=== PATIENT | female | born 1980 | race Caucasian/White ===

== ENCOUNTER 2016-12-10 10:43 | Emergency (ER) | payer SELFPAY ==
[2016-12-10 11:34] LABS: BASOPHILS % 0.4 (0.0-1.5); EOSINOPHILS % 3.8 % (0.0-6.8); LYMPHOCYTES # 2.2 # k/uL (0.6-4.0); MEAN CORPUSCULAR HEMOGLOBIN 33.7 pg (28.0-34.0); MONOCYTES # 0.2 # k/uL (0.0-0.9); MONOCYTES % 5.4 % (0.0-11.0); NEUTROPHILS # 1.8 # k/uL (1.4-7.7)
[2016-12-10 11:50] LABS: eGFR (African) > 60; eGFR (Non-African) > 60
--- NOTE | 2016-12-10 12:17 | ED Physician Documentation ---
Upper Respiratory Symptoms - HISTORIAN Historian: patient - HPI Stated Complaint: cough Chief Complaint: Cough/ Upper Respiratory Onset: days ago Associated Symptoms: fever, chills, productive cough, other (wheezing) Further Comments: yes (36 year old female patient presents with complaints of cough, fever and wheezing for the past 7-10 days.) - ROS CONST/EYES: denies: weakness, eye redness, eye itching, other CVS/RESP: none LYMPH: denies: leg swelling, rash, swollen glands, ankle swelling, other GI/: none - PAST HX Lung Disease: asthma Allergies/Adverse Reactions: Allergies Allergy/AdvReac Type Severity Reaction Status Date / Time codeine [Codeine] Allergy Intermediate Rash Verified 12/10/16 10:57 Penicillins Allergy Intermediate Rash Verified 12/10/16 10:57 Home Medications: Ambulatory Orders Medication Instructions Recorded Albuterol Sulfate [Ventolin] 2.5 mg NEB Q4 PRN #25 vial 12/10/16 Ciprofloxacin HCl [Cipro] 500 mg PO BID #20 tablet 12/10/16 Prednisone 30 mg PO DAILY #15 tablet 12/10/16 - SOCIAL HX Smoking History: cigarettes - FAMILY HX Family History: denies: none - VITAL SIGNS Vital Signs: Vital Signs Temp Pulse Resp BP Pulse Ox 99.1 F 80 18 123/67 96 12/10/16 10:51 12/10/16 10:51 12/10/16 10:51 12/10/16 10:51 12/10/16 10:51 - REVIEWED ASSESSMENTS Nursing Assessment Reviewed: Yes Vitals Reviewed: Yes Progress - Progress Progress: Patient requesting medication from the $4 list, states she does not have medical insurance. Patient concerned she cannot afford medications today. Call to [facility] - explained to patient she could rent a nebulizer machine for $20 per month. ED Results Lab/Radiology - Lab Results Lab Results: Lab Results 12/10/16 12/10/16 12/10/16 11:20 11:20 11:10 WBC 4.50 K/ul K/ul (4.00-12.00) RBC 4.11 M/ul M/ul (3.90-5.20) Hgb 13.9 g/dL g/dL (12.0-16.0) Hct 41.3 % % (34.5-46.5) MCV 100.6 fl H fl (80.0-100.0) MCH 33.7 pg pg (28.0-34.0) MCHC 33.5 g/dL g/dL (30.0-36.0) RDW 12.6 % % (11.3-14.3) Plt Count 199 K/mm3 K/mm3 (130-400) Neut % (Auto) 38.8 % L % (39.0-79.0) Lymph % (Auto) 48.5 % % (16.0-50.0) [place] % (Auto) 5.4 % % (0.0-11.0) Eos % (Auto) 3.8 % % (0.0-6.8) Baso % (Auto) 0.4 (0.0-1.5) Neut # 1.8 # k/uL # k/uL (1.4-7.7) Lymph # 2.2 # k/uL # k/uL (0.6-4.0) [place] # 0.2 # k/uL # k/uL (0.0-0.9) Eos # 0.2 # k/uL # k/uL (0.0-0.6) Baso # 0.0 # k/uL # k/uL (0.0-0.5) Reactive Lymphs % 3.0 % % (0.0-5.0) Reactive Lymphs # 0.1 # k/uL # k/uL (0.0-0.8) Sodium 139 mmol/L mmol/L (136-145) Potassium 4.0 mmol/L mmol/L (3.5-5.0) Chloride 107 mmol/L mmol/L (98-110) Carbon Dioxide 35 mmol/L H mmol/L (20-32) BUN 12 mg/dL mg/dL (10-26) Creatinine 0.6 mg/dL mg/dL (0.4-1.5) Estimated Creat Clear 333 Est GFR ( Amer) > 60 (60 - ) Est GFR (Non-Af Amer) > 60 (60 - ) Glucose 108 mg/dL H mg/dL (70-99) Calcium 9.7 mg/dL mg/dL (8.5-10.5) Total Bilirubin 0.4 mg/dL mg/dL (0.2-1.2) AST 42 U/L H U/L (0-41) ALT 49 U/L H U/L (0-45) Alkaline Phosphatase 79 U/L U/L (46-116) Total Protein 7.8 g/dL g/dL (6.0-8.5) Influenza Type A Ag Negative (NEGATIVE) Influenza Type B Ag Negative (NEGATIVE) - Orders Orders: ED Orders Category Date Time Status CHEST 2 VIEW [CHEST P.A.&LAT 2 VIEWS] [RAD] Stat Exams 12/10/16 Ordered CBC/PLATELET/DIFF Stat Lab 12/10/16 11:20 Completed CMP Stat Lab 12/10/16 11:20 Completed INFLUENZA A&B Stat Lab 12/10/16 11:10 Completed Upper Respiratory Symptoms - EXAM General Appearance: no acute distress, alert EENT: eyes nml inspection, nml ENT inspection, lids & conjunct. nml, PERRL, ear nml, nose nml, pharynx nml, airway nml Respiratory: no resp. 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 Neuro/Psych: oriented x3, neuro intact, mood/affect nml, CN's nml as tested Discharge Clincal Impression: Asthma Qualifiers: Asthma severity: mild intermittent Asthma complication type: with acute exacerbation Qualified Code(s): J45.21 - Mild intermittent asthma with (acute) exacerbation Prescriptions: Albuterol Sulfate [Ventolin] 2.5 mg NEB Q4 PRN #25 vial PRN Reason: Wheezing Ciprofloxacin HCl [Cipro] 500 mg PO BID #20 tablet Prednisone 30 mg PO DAILY #15 tablet Referrals: Primary Doctor,No [Primary Care Provider] - 2 Days Additional Instructions: Start a daily allergy medication such as claritan, giuliana, or zyrtec puppy walker your prescriptions at [facility] and start them today. Contact [facility] to rent a neb machine. Home Medications: Ambulatory Orders Albuterol Sulfate [Ventolin] 2.5 mg NEB Q4 PRN #25 vial 12/10/16 Ciprofloxacin HCl [Cipro] 500 mg PO BID #20 tablet 12/10/16 Prednisone 30 mg PO DAILY #15 tablet 12/10/16 Condition: Stable Disposition: HOME, SELF-CARE Decision to Admit: NO Decision Time: 12:22
[2016-12-10 12:59] VITALS: BP 122/72
--- NOTE | 2016-12-10 14:39 | Diagnostic Imaging Report ---
[facility] [address] [facility].[address] [address] Report Submission Date: Dec 10, 2016 1:14:13 PM BACKEND TESTER Patient Study Name: NICOLE SAHA Date: Dec 10, 2016 11:31:31 AM BACKEND TESTER Modality Type: CR Gender: F Description: CHEST : 84 Institution: [facility] Physician IMMANUEL FELICIANO (MEDICAL RESEARCHER) - ER Chest 2 views The exam: December 10, 2016. Clinical history: Cough, shortness of breath and wheezing. Findings: There are no comparison studies. The cardiac and mediastinal silhouettes are normal. The lungs are clear without evidence of infiltrate or effusion. The trachea is midline and the aortic arch contour is normal. The pulmonary vascularity is within normal limits. There is mild degenerative thoracic spondylosis. Impression: No acute cardiopulmonary abnormality. Electronically signed on Dec 10, 2016 1:14:13 PM BACKEND TESTER by: Desirae HERRERA
== END 2016-12-10 12:38 | disposition home or self-care (01) ==
LOC: ED 10:43
DX: J45.21 Mild intermittent asthma with (acute) exacerbation (principal)
CPT/HCPCS: 36415; 71020; 80053; 85025; 87400; 99283

== ENCOUNTER 2017-09-09 07:34 | Emergency (ER) | payer SELFPAY ==
--- NOTE | 2017-09-09 07:51 | ED Physician Documentation ---
Upper Respiratory Symptoms - HISTORIAN Historian: patient - HPI Stated Complaint: cough x 4 days - she is a smoker Chief Complaint: Cough/ Upper Respiratory Onset: days ago (4) Duration: other (sometimes - per her statement ) Context: denies: recent foreign travel, insect bite(s), tick(s) Severity: mild Associated Symptoms: sinus pain, productive cough (at times she has a productive cough other times it is not productive ). denies: fever, chills, sweating, earache, runny nose, sinus drainage, sore throat, hoarseness, allergy , shortness of breath, hurts to breathe Worsened by Deep Breath: No Further Comments: no - ROS CONST/EYES: denies: weakness, eye redness, eye itching CVS/RESP: none LYMPH: denies: leg swelling, rash, swollen glands, ankle swelling GI/: denies: abdominal pain, problems urinating, vomiting, nausea NEURO/PSYCH: denies: fainting, dizziness, confusion MS/SKIN: denies: joint pain - PAST HX Lung Disease: none PE Risk Factors: none Other History: other (borderline diabetic ) Surgeries/Procedures: appendectomy, BLT, other (right arm had pins ) Immunizations: referred to PCP Allergies/Adverse Reactions: Allergies Allergy/AdvReac Type Severity Reaction Status Date / Time codeine [Codeine] Allergy Intermediate Rash Verified 09/09/17 08:02 Penicillins Allergy Intermediate Rash Verified 09/09/17 08:02 Home Medications: Ambulatory Orders Medication Instructions Recorded NK [NK] 09/09/17 - SOCIAL HX Smoking History: cigarettes Alcohol Use: none Drug Use: none - FAMILY HX Family History: none - VITAL SIGNS Vital Signs: Vital Signs Temp Pulse Resp BP Pulse Ox 97.2 F L 90 20 109/54 93 09/09/17 07:34 09/09/17 07:34 09/09/17 07:34 09/09/17 07:34 09/09/17 07:34 - REVIEWED ASSESSMENTS Nursing Assessment Reviewed: Yes Vitals Reviewed: Yes ED Results Lab/Radiology - Radiology Radiology Impressions: HISTORY: 37-year-old female with cough. COMPARISON: Chest x-ray dated 12/10/2016 TECHNIQUE: 2 views of the chest were performed. FINDINGS: No pneumothorax, consolidative infiltrates, pleural effusions, or pulmonary edema. The heart is not enlarged. There is mild lower thoracic degenerative disc disease. IMPRESSION: No acute cardiopulmonary process identified. Electronically signed on Sep 09, 2017 8:10:30 AM CDT by: Berto Padilla - Orders Orders: ED Orders Category Date Time Status CHEST P.A.&LAT 2 VIEWS [RAD] Stat Exams 09/09/17 Ordered Chem Sticks Med 09/09/17 07:52 Discontinued 1 each MC CHEMQ ONE Upper Respiratory Symptoms - EXAM General Appearance: no acute distress EENT: eyes nml inspection, nml ENT inspection Respiratory: no resp. distress, breath sounds nml, no pain on inspiration, speaks full sentences Abdomen: non-tender CVS: reg rate & rhythm, heart sounds normal Skin: color nml, no rash, warm,dry Extremities: non-tender, normal range of motion Neuro/Psych: oriented x3 Discharge Clincal Impression: Viral URI with cough Referrals: Primary Doctor,No [Primary Care Provider] - 2 Days Decision to Admit: NO Date of Decison to Admit: 09/09/17 Decision Time: 08:18
[2017-09-09 08:02] VITALS: BP 109/54
--- NOTE | 2017-09-09 15:20 | Diagnostic Imaging Report ---
YIFAN SALCEDO [facility] [address] [facility] [address] [place], [place]. [address] Report Submission Date: Sep 09, 2017 8:10:30 AM CDT Patient Study Name: NICOLE SAHA Date: Sep 09, 2017 8:00:28 AM CDT Modality Type: CR Gender: F Description: CHEST : 84 Institution: [facility] Physician: YIFAN SALCEDO HISTORY: 37-year-old female with cough. COMPARISON: Chest x-ray dated 12/10/2016 TECHNIQUE: 2 views of the chest were performed. FINDINGS: No pneumothorax, consolidative infiltrates, pleural effusions, or pulmonary edema. The heart is not enlarged. There is mild lower thoracic degenerative disc disease. IMPRESSION: No acute cardiopulmonary process identified. Electronically signed on Sep 09, 2017 8:10:30 AM CDT by: Berto HERRERA
== END 2017-09-09 08:21 | disposition home or self-care (01) ==
LOC: ED 07:34
DX: J06.9 Acute upper respiratory infection, unspecified (principal); R05 Cough
CPT/HCPCS: 71020; 99283

== ENCOUNTER 2018-05-30 13:36 | Emergency (ER) | payer SELFPAY ==
--- NOTE | 2018-05-30 14:15 | ED Physician Documentation ---
Low Back Pain - HISTORIAN Historian: patient - HPI Chief Complaint: Low Back Pain/ Injury History: history of chronic pain: (freq dental pain) Onset: days ago (2) Duration: continues in ED Recent Injury: No Other Injuries: other (lo back) Severity: mild, moderate Quality: burning, similar- prior back pain Associated Symptoms: incontinence, problems urinating (frequency slight burning- long hx freq uti). denies: fever, chills, sweating, constipation, nausea, vomiting - ROS CONST: no problems CVS/RESP: none. denies: chest pain EYES/ENT: none MS/SKIN/LYMPH: none, other (recent tattoo 05-28-18) Neuro/Psych: none GI/: denies: abdominal pain - PAST HX Past History: back pain Other History: other (PCOS asthma). denies: aortic aneurysm, cancer chemo Surgeries/Procedures: appendectomy, BTL Allergies/Adverse Reactions: Allergies Allergy/AdvReac Type Severity Reaction Status Date / Time codeine [Codeine] Allergy Intermediate Rash Verified 09/09/17 08:02 Penicillins Allergy Intermediate Rash Verified 09/09/17 08:02 Home Medications: Ambulatory Orders Medication Instructions Recorded NK [NK] 09/09/17 - SOCIAL HX Smoking History: greater than 1 pack/day Alcohol Use: rarely Drug Use: none - FAMILY HX Family History: no significant history - VITAL SIGNS Vital Signs: Vital Signs Temp Pulse Resp BP Pulse Ox 109/54 09/09/17 07:34 - REVIEWED ASSESSMENTS Nursing Assessment Reviewed: Yes Vitals Reviewed: Yes ED Results Lab/Radiology - Orders Orders: ED Orders Category Date Time Status URINALYSIS Routine Lab 05/30/18 Ordered Low Back Pain/Injury - Physical Exam General Appearance: mild distress, moderate distress EENT: eye inspection normal Neck: non-tender Resp/CVS: chest non-tender, breath sounds nml, heart sounds nml, no resp. distress, lungs clear, reg. rate & rhythm Abdomen: non-tender Back: other (lo back w/ some para vert spasm) Neuro/Psych: oriented x3, motor nml, sensation nml, mood/affect nml Skin: warm/dry, normal color. No: cyanosis, diaphoresis Extremities: non-tender, normal range of motion Discharge Clincal Impression: uti lo back pain Referrals: Primary Doctor,No [Primary Care Provider] - 2 Days Comments: cipro nonefor more thamn 3 mo. ibu for back pain Condition: Good Disposition: 01 HOME, SELF-CARE Decision to Admit: NO Decision Time: 14:20
[2018-05-31 07:20] LABS: APPEARANCE,URINE CLOUDY (CLEAR); COLOR,URINE YELLOW (YELLOW); OCCULT BLOOD,URINE NEGATIVE (NEGATIVE); UROBILINOGEN URINE 0.2 Eu (0.2-1.0)
== END 2018-05-30 14:30 | disposition home or self-care (01) ==
LOC: ED 13:36
DX: N39.0 Urinary tract infection, site not specified (principal); M54.5 Low back pain
CPT/HCPCS: 81002; 87086; 99283

== ENCOUNTER 2018-11-04 09:18 | Emergency (ER) | payer SELFPAY ==
[2018-11-04 09:40] VITALS: BP 131/74
--- NOTE | 2018-11-04 09:44 | ED Physician Documentation ---
Flank Pain - HISTORIAN Historian: patient - HPI Stated Complaint: flank pain Chief Complaint: Flank Pain Additional Information: Patient presents to ED with a 12 hour history of left flank pain and low back pain. Patient has a history of PCOS and frequent urinary tract infections. She admit to chills and lower abdominal pain also. Onset: hours (12) Duration: waxing, waning Timing: still present Context: denies: out of country travel Severity: mild Quality: aching, cramping Associated Symptoms: chills. denies: nausea, vomiting Exacerbated by: movements Relieved by: remaining still - ROS CONST: no problems GI/: denies: problems urinating CVS/RESP: denies: shortness of breath EYES/ENT: none MS/SKIN/LYMPH: none NEURO/PSYCH: none - SOCIAL HX Smoking History: non-smoker Alcohol Use: none Drug Use: none - FAMILY HX Family History: none - PAST HX Past History: other (PCOS) Ischemic Bowel Risk Factors: none Other History: none Surgeries/Procedures: other (tubal) Medications: none - VITAL SIGNS Vital Signs: Vital Signs Temp Pulse Resp BP Pulse Ox 96.7 F L 79 22 131/74 98 11/04/18 09:29 11/04/18 09:29 11/04/18 09:29 11/04/18 09:29 11/04/18 09:29 - REVIEWED ASSESSMENTS Nursing Assessment Reviewed: Yes Vitals Reviewed: Yes ED Results Lab/Radiology - Lab Results Lab Results: UA = 3+ blood, trace leukocytes, Nitrite negative. - Radiology Radiology Impressions: Examination: CT Abdomen/pelvis History: Comparison exams: None available Technique: CT Abdomen/pelvis without IV protocol. Findings: Liver, spleen, adrenals, pancreas, kidneys and gallbladder are without gross irregularity given exam technique. No gallstone. No suspicious renal calcifications. Ureters are nondilated in their course through the abdomen and pelvis. No central calcifications. Bladder margin within normal limits. Abdominal aorta without aneurysm or peripheral atherosclerotic disease. Cardiac silhouette is not enlarged. No pericardial effusion. Bowel unopacified limiting evaluation. No abnormal dilation. Stool within the large bowel limiting sensitivity. No mesenteric inflammatory changes or free fluid. Surgical clips in the cecum/appendiceal region. Osseous structures demonstrate degenerative changes. Lung bases demonstrate atelectasis without infiltrate. No effusion. Impression: No acute upper abdominal organ inflammatory process. No abnormal bowel dilation or inflammation. No gallstone. No suspicious renal calcifications or abnormal ureteric dilation. No lung base consolidation or effusion. Electronically signed on Nov 04, 2018 10:22:39 AM ARMOR RECONNAISSANCE VEHICLE CREWMAN by: Kota Ovalle - Orders Orders: ED Orders Category Date Time Status CT ABD & PELVIS W/O CON Stat Exams 11/04/18 Ordered UA W MICRO [UA W/MICRO IF INDICATED] Routine Lab 11/04/18 09:28 Ordered Abdominal Pain Physical Exam - Physical Exam General Appearance: no acute distress, alert EENT: RASHMI NECK: supple RESPIRATORY: no resp distress, chest non-tender, breath sounds normal CVS: reg rate & rhythm, heart sounds normal ABDOMEN: soft, tenderness (suprapubic) BACK: CVA tenderness (L) SKIN: warm/dry EXTREMITIES: non-tender, no edema NEURO: oriented X3, motor nml Vital Signs: Vital Signs Temp Pulse Resp BP Pulse Ox 96.7 F L 79 22 131/74 98 11/04/18 09:29 11/04/18 09:29 11/04/18 09:29 11/04/18 09:29 11/04/18 09:29 Discharge Clincal Impression: Acute cystitis Qualifiers: Hematuria presence: with hematuria Qualified Code(s): N30.01 - Acute cystitis with hematuria Prescriptions: Ciprofloxacin HCl [Cipro] 500 mg PO BID #14 tablet Referrals: Primary Doctor,No [Primary Care Provider] - 2 Days Additional Instructions: 1. Tylenol and/or Ibuprofen as needed for pain 2. Drink plenty of fluids to maintain proper hydration 3. Avoid caffeine, alcohol and energy drinks 4. Follow up with PCP within 1 week 5. Return to ED with new or worsening symptoms Condition: Stable Disposition: 01 HOME, SELF-CARE Decision to Admit: NO Date of Decison to Admit: 11/04/18 Decision Time: 10:26
--- NOTE | 2018-11-04 10:28 | Diagnostic Imaging Report ---
Report Submission Date: Nov 04, 2018 10:22:39 AM CREATIVE STRATEGIST Patient Study Name: NICOLE SAHA Date: Nov 04, 2018 9:53:45 AM CREATIVE STRATEGIST Modality Type: CT\SR Gender: F Description: CT ABD PELVIS W/O CO : 84 Institution: [facility] Physician: CHUY ANGELES Examination: CT Abdomen/pelvis History: Comparison exams: None available Technique: CT Abdomen/pelvis without IV protocol. Findings: Liver, spleen, adrenals, pancreas, kidneys and gallbladder are without gross irregularity given exam technique. No gallstone. No suspicious renal calcifications. Ureters are nondilated in their course through the abdomen and pelvis. No central calcifications. Bladder margin within normal limits. Abdominal aorta without aneurysm or peripheral atherosclerotic disease. Cardiac silhouette is not enlarged. No pericardial effusion. Bowel unopacified limiting evaluation. No abnormal dilation. Stool within the large bowel limiting sensitivity. No mesenteric inflammatory changes or free fluid. Surgical clips in the cecum/appendiceal region. Osseous structures demonstrate degenerative changes. Lung bases demonstrate atelectasis without infiltrate. No effusion. Impression: No acute upper abdominal organ inflammatory process. No abnormal bowel dilation or inflammation. No gallstone. No suspicious renal calcifications or abnormal ureteric dilation. No lung base consolidation or effusion. Electronically signed on Nov 04, 2018 10:22:39 AM CREATIVE STRATEGIST by: Kota HERRERA
== END 2018-11-04 10:37 | disposition home or self-care (01) ==
LOC: ED 09:18
DX: N30.01 Acute cystitis with hematuria (principal)
CPT/HCPCS: 74176; 99282; 99284

== ENCOUNTER 2019-02-04 07:38 | Emergency (ER) | payer SELFPAY ==
[2019-02-04 07:57] VITALS: BP 134/56
[2019-02-04] MEDS ORDERED: KETOROLAC TROMETHAMINE 60 MG/2 ML VIAL IM ONE (08:15)
--- NOTE | 2019-02-04 08:22 | ED Physician Documentation ---
Female Urogenital Problems - HISTORIAN Historian: patient - HPI Stated Complaint: Dysuria Chief Complaint: Female Urogenital Problems (Urinary sx's) Additional Information: Patient is a 38-year-old female who presents to the ER with c/o urinary urgency, pain, frequency, and blood. She states that symptoms started 2 days ago. She has an extensive history of UTIs since the age of 4. She states that she has had multiple work ups and "no findings". She denies bubble baths, douches, or creams. She normally takes Cipro but does not feel that it works anymore- would like to try Bactrim again. She is requesting Pyridium for the pain. She states that she does not have insurance to see her PCP regularly but she is working. Onset: days ago (2) Severity: mild Location of Pain: pelvic pain (pubic pain when urinating) Further Comments: no - Associated Symptoms Urinary Symptoms: blood in urine, frequent urination, burning w/ urination, urgency w/ urination, pain w/ urination Discharge: denies: vaginal discharge - ROS CONST: none GI/: denies: nausea, vomiting CVS/RESP: none EYES/ENT: none NEURO/PSYCH: none MS/SKIN/LYMPH: none - PAST HX Past History: none Other History: bladder infection Surgeries/Procedures: BTL Immunizations: UTD Allergies/Adverse Reactions: Allergies Allergy/AdvReac Type Severity Reaction Status Date / Time codeine [Codeine] Allergy Intermediate Rash Verified 02/04/19 07:55 Penicillins Allergy Intermediate Rash Verified 02/04/19 07:55 Home Medications: Ambulatory Orders Medication Instructions Recorded Ciprofloxacin HCl [Cipro] 500 mg PO BID #14 tablet 11/04/18 Phenazopyridine HCl [Pyridium] 200 mg PO TID PRN #21 tablet 02/04/19 Sulfamethoxazole/Trimethoprim 1 each PO BID #20 tab 02/04/19 [Bactrim Ds] - SOCIAL HX Smoking History: greater than 1 pack/day Alcohol Use: rarely Drug Use: none - FAMILY HX Family History: none - VITAL SIGNS Vital Signs: Vital Signs Temp Pulse Resp BP Pulse Ox 97.9 F 98 H 16 134/56 98 02/04/19 07:38 02/04/19 07:38 02/04/19 07:38 02/04/19 07:38 02/04/19 07:38 - REVIEWED ASSESSMENTS Nursing Assessment Reviewed: Yes Vitals Reviewed: Yes Progress - Progress Progress: Discussed sending referral in for Urology- she states that she does not have insurance and cant afford it- she has had multiple work-ups in the past and no abnormal findings ED Results Lab/Radiology - Lab Results Lab Results: Positive UTI with hematuria- will send for culture - Orders Orders: ED Orders Category Date Time Status Ketorolac Tromethamine [Toradol] Med 02/04/19 08:15 Once 60 mg IM NOW ONE Female Urogenital Problems - EXAM General Appearance: no acute distress, alert EENT: eye inspection normal, ENT inspection normal, pharynx normal, no signs of dehydration, RASHMI Neck: nml inspection Respiratory: no resp. distress, breath sounds nml CVS: reg rate & rhythm, heart sounds normal, equal pulses Abdomen: soft, non-tender, no distention, nml bowel sounds Back: non-tender Skin: color nml, no rash Extremities: normal range of motion Neuro: oriented X3, CN's nml as tested, motor nml, sensation nml, mood/affect nml, cognition normal Discharge Clincal Impression: Acute cystitis Prescriptions: Phenazopyridine HCl [Pyridium] 200 mg PO TID PRN #21 tablet PRN Reason: Pain Sulfamethoxazole/Trimethoprim [Bactrim Ds] 1 each PO BID #20 tab Referrals: Primary Doctor,No [Primary Care Provider] - 2 Days Additional Instructions: Increase fluid intake (no caffeine) Bactrim DS 1 tab by mouth twice day until gone Pyridium 1 tab by mouth 3 times a day as needed for pain Follow up with primary care provider next week Condition: Good Disposition: 01 HOME, SELF-CARE Decision to Admit: NO Decision Time: 08:28
[2019-02-04 08:57] LABS: APPEARANCE,URINE CLEAR (CLEAR); COLOR,URINE ORANGE (YELLOW); OCCULT BLOOD,URINE 3+ (NEGATIVE); PH URINE 5.5 (5.0 - 8.0)
== END 2019-02-04 08:28 | disposition home or self-care (01) ==
LOC: ED 07:38
DX: N30.01 Acute cystitis with hematuria (principal); B96.20 Unspecified Escherichia coli [E. coli] as the cause of diseases classified elsewhere; Z16.35 Resistance to multiple antimicrobial drugs
CPT/HCPCS: 81002; 87086; 96372; 99283; J1885